=== PATIENT | male | born 1950 | race Caucasian/White ===

== ENCOUNTER 2016-06-05 13:52 | Outpatient (CLI) | payer BC ==
[2015-03-06 07:15] VITALS: O2SAT 100
== END 2016-06-05 13:53 | disposition home or self-care (01) ==
LOC: CONVCARE 13:52
PROVIDERS: ATTEND Orthopaedic Surgery
DX: S62.626D Displaced fracture of middle phalanx of right little finger, subsequent encounter for fracture with routine healing (principal); Z89.021 Acquired absence of right finger(s)
CPT/HCPCS: 73140

== ENCOUNTER 2016-07-16 19:09 | Emergency (ER) | payer BC ==
[2016-07-16] MEDS ORDERED: HYDROMORPHONE HCL 2 MG/ML 1 ML SOL ONE ×2 (19:17→20:44)
[2016-07-16] MEDS ORDERED: ONDANSETRON HCL 4 MG/2 ML SOL ONE (19:17)
[2016-07-16] MEDS: HYDROMORPHONE HCL 2 MG/ML 1 ML SOL IV ONE ×2 (19:20→20:45)
[2016-07-16 19:25] LABS: BASOPHILS % (AUTO) 0 % (0-3); EOSINOPHILS % (AUTO) 1 % (0-9); HEMATOCRIT 45 % (39-53); MEAN CORPUSCULAR HGB CONC 34.9 gm/dl (32.0-36.0); MEAN CORPUSCULAR VOLUME 89 fL (80-100); MONOCYTES % (AUTO) 6.7 % (0-12); NEUTROPHILS % (AUTO) 76.2 % (37-80)
[2016-07-16] MEDS: ONDANSETRON HCL 4 MG/2 ML SOL IV ONE (19:25)
[2016-07-16 19:35] LABS: CALCIUM 8.8 mg/dl (8.5-10.1); POTASSIUM 3.7 mMol/L (3.5-5.1)
[2016-07-16] MEDS ORDERED: KETOROLAC TROMETHAMINE 30 MG/ML SOL ONE (20:06)
[2016-07-16] MEDS: KETOROLAC TROMETHAMINE 30 MG/ML SOL IV ONE (20:20)
[2016-07-16 20:27] LABS: APPEARANCE,URINE Clear; BILIRUBIN,URINE NEGATIVE (NEGATIVE); COLOR,URINE Yellow; GLUCOSE, URINE (UA) NEGATIVE (NEGATIVE); KETONES,URINE 1+ (NEGATIVE); LEUKOCYTE ESTERASE ,URINE NEGATIVE (NEGATIVE); NITRATE,URINE NEGATIVE (NEGATIVE); OCCULT BLOOD,URINE TRACE INTACT (NEG-TRACE); PH,URINE 5.5; UROBILINOGEN,URINE 0.2 (0.2-1.0 EU)
[2016-07-16 20:30] VITALS: O2SAT 98
[2016-07-16 20:37] LABS: RBC,URINE 0-2 (0-3AV/HPF); WBC,URINE 0-1 (0-5AV/HPF)
[2016-07-16] MEDS: SODIUM CHLORIDE 0.9% 1000ML 1,000 ML IV SCH (20:47)
[2016-07-16 21:45] VITALS: BP 124/72; PULSE 73; RESP 17; TEMP 98.6
== END 2016-07-16 21:06 | disposition short-term general hospital (02) ==
LOC: ED 19:09
DX: S22.078A Other fracture of T9-T10 vertebra, initial encounter for closed fracture (principal); W14.XXXA Fall from tree, initial encounter; Y93.H9 Activity, other involving exterior property and land maintenance, building and construction
CPT/HCPCS: 99285 ×3; 72125; 72128; 80048; 81001; 85025; G0390; J1170 ×2; J1885; J2405; 36415; 96365; 96374; 96375; 99284

== ENCOUNTER 2016-08-14 08:41 | Outpatient (CLI) | payer BC | END 2016-08-14 08:42 | disposition home or self-care (01) | LOC: CONVCARE 08:41 | PROVIDERS: ATTEND Orthopaedic Surgery | DX: S62.626D Displaced fracture of middle phalanx of right little finger, subsequent encounter for fracture with routine healing (principal); Z89.021 Acquired absence of right finger(s) | CPT/HCPCS: 73140 ==

== ENCOUNTER 2016-09-25 09:50 | Outpatient (CLI) | payer BC | END 2016-09-25 09:51 | disposition home or self-care (01) | LOC: CONVCARE 09:50 | PROVIDERS: ATTEND Orthopaedic Surgery | DX: S62.626D Displaced fracture of middle phalanx of right little finger, subsequent encounter for fracture with routine healing (principal) | CPT/HCPCS: 73140 ==

== ENCOUNTER 2018-12-15 23:49 | Emergency (ER) | payer MEDICARE, BC ==
[2018-12-15 23:59] VITALS: BP 145/85; PULSE 50; RESP 16; TEMP 97.4; O2SAT 99
== END 2018-12-16 00:40 | disposition home or self-care (01) | DRG 125 ==
LOC: ED 23:49
DX: H53.8 Other visual disturbances (principal)
CPT/HCPCS: 99282